=== PATIENT | male | born 1950 | race Caucasian/White ===

== ENCOUNTER 2021-08-14 15:41 | Emergency (ER) | payer MEDICARE, SELFPAY ==
--- NOTE | ~2021-08-14 | XR_ITS ---
EXAMINATION: XR lumbar spine min 4V EXAM DATE: 08/14/2021 17:27 INDICATION: Twisting injury, unable to lay flat due to back pain. TECHNIQUE: Lumber spine frontal, lateral, bilateral oblique projections. Coned down frontal and lat eral L5-S1 lumbar projections for interpretation. Comparison is made to prior examination from 09/18/18 . FINDINGS: There is moderate L2-3 disc disease, mild to moderate at the other lumbar levels. Minimal l umbar dextroscoliosis. No spondylolysis. The vertebral bodies are aligned in the AP dimension. There is moderate to severe mid and lower lumbar facet arthropathy. There is aortic arteriosclerosis. There are cholecystectomy clips. IMPRESSION: 1. Overall moderate lumbar spondylosis. 2. Mild dextro scoliosis. 3. No acute findings. Reviewed, dictated and finalized at location A. TOR TECHNICIAN
--- NOTE | ~2021-08-14 | XR_ITS ---
EXAMINATION: XR chest 2V EXAM DATE: 08/14/2021 17:27 INDICATION: Cough. TECHNIQUE: Frontal and lateral projections of the chest obtained and reviewed. Comparison is made to prior examination from 07/16/2016. FINDINGS: The lungs are clear. There are no pleural effusions. The cardiomediastinal silhouette is within normal limits. There is no pneumothorax suspected. The bones and soft tissues are unremarkab le. There are cholecystectomy clips. IMPRESSION: Normal chest x-ray exam. Reviewed, dictated and finalized at location A. OL PRINCIPAL IMPRESSION: Normal chest x-ray exam.
[2021-08-14 15:50] VITALS: BP 122/76; PULSE 70; RESP 18; TEMP 36.5; O2SAT 98
[2021-08-14] MEDS: KETOROLAC 30 MG/ML VIAL (*BKC) IM (17:41)
[2021-08-14 18:47] VITALS: BP 125/80; PULSE 72; RESP 18; O2SAT 100
--- NOTE | 2021-08-14 20:18 | ED.GENADULT ---
HPI - General Adult General Chief complaint: Back Pain/Injury Stated complaint: flank pain Time Seen by Provider: 08/14/21 16:57 Source: patient Mode of arrival: ambulatory Limitations: no limitations History of Present Illness HPI narrative: Patient is 71-year-old male presented with chief complaint of pain to the right side of his low back that began when reaching for an object on his [place] tree. He denies direct injury or impact or falls. Patient denies loss of bowel or bladder function or saddle paresthesia. Patient also reports that he has had a cough, fatigue and headache over the past few days. Patient reports that he was tested for Covid but is awaiting his results. Patient states he has not been tested for influenza. Patient denies any chest pain or shortness of breath. Patient denies any other emergent symptoms. Related Data Home Medications Medication Instructions Recorded Confirmed atorvastatin 40 mg tablet 40 mg PO DAILY 07/19/20 lisinopril 10 mg tablet 10 mg PO DAILY 07/19/20 Allergies Allergy/AdvReac Type Severity Reaction Status Date / Time No Known Allergies Allergy Verified 08/14/21 15:55 Review of Systems Review of Systems: CONSTITUTIONAL: Denies fever, chills, or sweats. EYES: Denies visual changes, redness, or discharge. ENT: Denies rhinorrhea, congestion, sore throat, or otalgia. CARDIOVASCULAR: Denies chest pain, palpitations, or edema. RESPIRATORY: Denies cough denies dyspnea. GASTROINTESTINAL: Denies abdominal pain, nausea, vomiting, or diarrhea. GENITOURINARY: Denies dysuria or hematuria. SKIN: Denies rash or itching. MUSCULOSKELETAL: Reports back pain, denies joint pain, or myalgia. NEUROLOGIC: Reports headache, denies numbness, dizziness, or weakness. PSYCHIATRIC: Denies anxiety or depression. [facility] Social History Social History (Updated 07/19/20 @ 08:13 by Kay Martinez [facility]) Smoking status: Former smoker Tobacco type: cigars Second hand tobacco smoke exposure: No Smoking end date: 08/11/99 Alcohol intake: current Substance use: never Substance use type: does not use Exam Narrative: GENERAL: Well-appearing, well-nourished, and in no acute distress. HEAD: Normocephalic, atraumatic. CHEST: Clear to auscultation. No respiratory distress. No wheezes rales or rhonchi HEART: Regular rate and rhythm. No murmur heard. Normal peripheral pulses. BACK: Spasming and tenderness to palpation of low back into the right paralumbar muscles. Pain with rotation and flexion. EXTREMITIES: Normal range of motion. Sensation intact. SKIN: Warm, dry, no rash. NEURO: No focal deficits. Alert and oriented x3. PSYCH: Normal mood and affect. Course Vital Signs Vital signs: Vital Signs Temperature 97.7 F 08/14/21 15:50 Pulse Rate 70 08/14/21 15:50 Respiratory Rate 18 08/14/21 15:50 Blood Pressure 122/76 08/14/21 15:50 Pulse Oximetry 98 08/14/21 15:50 Temperature 97.7 F 08/14/21 15:50 Pulse Rate 72 08/14/21 18:47 Respiratory Rate 18 08/14/21 18:47 Blood Pressure 125/80 08/14/21 18:47 Pulse Oximetry 100 08/14/21 18:47 Medical Decision Making [facility] Narrative Medical decision making narrative: patients pain is positional in nature and localized to back without signs of cord compression or cauda equina based on neurological exam, skeletal exam and history. No fever or other significant factors to suggest osteomyelitis or spinal epidural abscess. No symptoms or signs to suggest pain is referred from abdominal or / cardiopulmonary sources. No pulsatile masses noted on exam. Patient ambulates with steady gait and is stable for outpatient management given case findings. Patient influenza test negative. Patient vitals are stable. Patient not hypoxic or toxic. Discussed obtaining covid results, quarantine instructions and return ER instructions. Vital Signs Vital Signs: Vital Signs Temperature 97.7 F 08/14/21 15:50 Pulse Rate 70
== END 2021-08-14 18:48 | disposition home or self-care (01) ==
PROVIDERS: Emergency Provider Emergency Medicine; PCP Family Medicine
DX: S39.012A Strain of muscle, fascia and tendon of lower back, initial encounter (principal); Z20.822 Contact with and (suspected) exposure to COVID-19; Z87.891 Personal history of nicotine dependence; M47.816 Spondylosis without myelopathy or radiculopathy, lumbar region; M41.9 Scoliosis, unspecified; X50.9XXA Other and unspecified overexertion or strenuous movements or postures, initial encounter
CPT/HCPCS: 71046; 72110; 87804; 96372; 99284; J1885

== ENCOUNTER 2021-08-24 07:41 | Outpatient (CLI) | payer MEDICARE, SELFPAY ==
--- NOTE | ~2021-08-24 | CT_ITS ---
EXAMINATION: CT lumbar spine wo con EXAM DATE: 08/24/2021 08:00 INDICATION: Low back pain, spondylolisthesis. TECHNIQUE: Multi-sequential, multiplanar MR images of the lumbar spine were obtained without contrast . Sagittal T1, T2, T2 fat saturation images. Axial T2 weighted images. Correlation is made to lum r x-ray 08/14/2021. FINDINGS: Mild to moderate thoracolumbar disc disease. The vertebral bodies are aligned in the AP dim ension. Minimal lumbar dextroscoliosis. Sacroiliac joints have mild osteoarthritis. No evidence of sa cral insufficiency fracture. Mild aortic arterial sclerosis. Vertebral body heights are maintained. Level by level evaluation: T12-L1: There is a mild diffuse disc bulge. Facet arthropathy: Moderate to severe bilateral. Neural foraminal stenosis: Moderate left. Central canal stenosis: No stenosis. L1-L2: There is a minimal diffuse disc bulge. Facet arthropathy: Mild to moderate. Neural foraminal stenosis: No stenosis. Central canal stenosis: No stenosis. L2-L3: There is a mild diffuse disc bulge. Facet arthropathy: Moderate right, mild to moderate left. Neural foraminal stenosis: No stenosis. Central canal stenosis: Mild. L3-L4: There is a mild diffuse disc bulge. Facet arthropathy: Moderate bilateral. Neural foraminal stenosis: Mild to moderate left, mild right. Central canal stenosis: Mild. L4-L5: There is a mild diffuse disc bulge. Facet arthropathy: Moderate to severe. Neural foraminal stenosis: Moderate left, mild to moderate right. Central canal stenosis: Mild. L5-S1: There is a mild diffuse disc bulge. Facet arthropathy: Moderate. Neural foraminal stenosis: Mild right. Central canal stenosis: No stenosis. IMPRESSION: 1. No acute lumbar findings. 2. Up to moderate to severe facet arthropathy, mild to moderate disc disease. 3. Left T12-L1 and L4-5 neural foramen most narrowed on study. Reviewed, dictated and finalized at location A. FILL GAS TECHNICIAN
== END 2021-08-24 07:42 | disposition home or self-care (01) ==
PROVIDERS: PCP Family Medicine; Visit Provider Family Medicine
DX: M43.16 Spondylolisthesis, lumbar region (principal)
CPT/HCPCS: 72131

== ENCOUNTER 2021-10-22 11:00 | Outpatient (RCR) | payer MEDICARE, SELFPAY ==
--- NOTE | 2021-09-24 11:47 | PTOPEVAL ---
PHYSICAL THERAPY INITIAL EVALUATION. Thank you for referring Roberto Carlos Her to [facility].? The patient is scheduled to be seen for therapy? 2x/week for 4 weeks. Please review, sign, date and return this plan of care NICOLE. I agree with and certify that the following plan of care is medically necessary. Referring Physician Date Attending Provider: Dillon Arias MD *PT Outpatient Evaluation Start: 09/24/21 Evaluation Information Problem Diagnosis Spondylolisthesis of lumbar region Onset chronic, increase in last 8 weeks Subjective Information Pt states he has a long Query Text:As Reported By Patient/ history of low back pain. He Family had a very physical job and said back pain is not new for him. He has states since the beginning of August this pain has increased, it got so severe he had to go to the ED. It is now across the entire low back, deep L buttock and runs down into his L lateral thigh. He states sometimes the pain moves and has affected his R leg previously. His pain increases with sitting and when standing he is able to walk it off . Pt states prior to Covid he was very active and liked to exercise, he states he is still active now just not like he used to be. Additional Prior Level of Function Pt states he is very active Comments and is constantly working on his yard, house, and doing projects. Pain Assessment Lower Back Reported Pain Level 2 Pain Description Shooting,Spasms Pain Radiation Left Leg Pain Frequency Chronic,Continuous Lowest Pain Intensity 1 Greatest Pain Intensity 6 Pain Aggravating Factors Bending,Lifting,Sitting, Walking Lumbar ROM Reason Not Measured WFL/Left,WFL/Right Lumbar Flexion Active Mid Menendez Lumbar Extension (0-40) 10 Lateral Flexion R reached lateral knee joint Query Text:Active Hands to: line, L 1 in. above knee joint line Lateral Rotation Right (0-45) 35 Query Text:Active in Degrees Lateral Rotation Left (0-45) 45
--- NOTE | 2021-09-27 09:10 | PCPTNOTE ---
Patient called & cancelled scheduled appointment this date due to water entering his basement this morning.
--- NOTE | 2021-10-15 09:33 | PCPTNOTE ---
Patient called & cancelled scheduled appointment this date due to having water in his basement.
--- NOTE | 2021-10-22 13:49 | PTOPEVAL ---
PHYSICAL THERAPY DISCHARGE NOTE Thank you for referring Roberto Carlos Her to [facility].? The patient is to be discharged at this time. Please review, sign, date and return this plan of care NICOLE. I agree with and certify that the following plan of care is medically necessary. Referring Physician Date Attending Provider: Dillon Arias MD *PT Outpatient Evaluation Start: 09/24/21 Evaluation Information Diagnosis Spondylolisthesis of lumbar region Subjective Information Pt states overall he is doing Query Text:As Reported By Patient/ so much better. He still feels Family like his balance is a little off but improving. He and his are planning returning to [place] starting today. Pt states he feels really great after he comes to therapy, and will feel great for a couple of days but then the tightness increases after then. He states he is learning how to target his stiffness. Pain Assessment Lower Back Reported Pain Level 1 Cervical and Lumbar ROM Lumbar ROM Reason Not Measured WFL/Left,WFL/Right Lumbar Flexion Active Floor Lumbar Extension (0-40) 30 Lateral Flexion Reaching lateral knee joint Query Text:Active Hands to: like on both side, increase pulling sensation with R lateral flexion Lateral Rotation Right (0-45) 45 Lateral Rotation Left (0-45) 45 Normal Lumbar Segmental Motion Yes Lower Extremity Range of Motion General Lower Extremity Range of Motion WFL/Left,WFL/Right Lower Extremity Muscle Strength Testing Left Hip Flexion Strength 4+ Good + Hip Extension Strength 4 Good Hip Abduction Strength 4 Good Muscle Length Testing Alexis Test Shortened Muscles Short (L) Iliopsoas,Short (L) Rectus Femoris Piriformis w/Hip Flexion >90 Degrees (R) Mild Tightness,(L) Mild Tightness Left Hamstring Length -35 Right Hamstring Length -20 Muscle Length Testing Comments Increased muscle pull felt with prone hip extension Palpation Assessment Palpation Mild tenderness in L paraspinals Gait Assessment Gait Pattern Trendelenburg Gait,Wide Based Gait Other Gait Observations Increased lateral trunk lean bilaterally. PT Clinical Summary
== END 2021-10-23 10:50 | disposition home or self-care (01) ==
LOC: ANHPT 11:00
PROVIDERS: PCP Family Medicine; Visit Provider Family Medicine
DX: M43.16 Spondylolisthesis, lumbar region (principal); M54.50 Low back pain, unspecified
CPT/HCPCS: 97014; 97110; 97112; 97140; 97161; G0283

== ENCOUNTER 2023-04-07 02:32 | Day surgery (SDC) | payer MEDICARE, SELFPAY ==
[2023-03-26 10:34] VITALS: BMI 28.2
[2023-04-07 10:00] VITALS: BP 119/100; PULSE 83; RESP 18; TEMP 36.1; O2SAT 98
[2023-04-07] MEDS: LACTATED RINGERS 1,000 ML 150 ML IV CONT (10:09)
--- NOTE | 2023-04-07 10:36 | P.PNAN_ITS ---
Anes - Initial Pre Proc Eval Procedure: Operation Date: 04/07/23 11:30 Proposed Procedures p Esophagogastroduodenoscopy & Colonoscopy - Moe Griffin MD Date/Time: 04/07/23 10:36 Surgeon: Moe Griffin MD Pre Op Diagnosis: GERD,dysphagia, hx colon polyps Patient Data Age: 73 Gender: M Height: 1.7 m Weight: 77.4 kg Last Vital Signs Temp 97 F L 04/07/23 10:00 Pulse 83 04/07/23 10:00 Resp 18 04/07/23 10:00 BP 119/100 H 04/07/23 10:00 Pulse Ox 98 04/07/23 10:00 O2 Del Method Room Air 04/07/23 10:00 Allergies Allergy/AdvReac Type Severity Reaction Status Date / Time No Known Allergies Allergy Verified 04/07/23 09:59 Home Medications Medication Instructions Recorded Confirmed Type atorvastatin 40 mg tablet 40 mg PO DAILY 07/19/20 03/26/23 History lisinopril 10 mg tablet 10 mg PO DAILY 07/19/20 03/26/23 History tadalafil 20 mg tablet 20 mg PO DAILY PRN Sexual Activity 02/27/23 03/26/23 History testosterone 1 % (25 mg/2.5 gram) 1 packet transdermal DAILY 02/27/23 03/26/23 History transdermal gel packet famotidine 40 mg tablet 40 mg PO DAILY 03/26/23 03/26/23 History Patient hx anesthesia problems: none Family hx anesthesia problems: none Results Review: All pre-operative results and documents have been reviewed as part of the pre- operative evaluation. [facility] Past Medical History Medical History (Updated 02/27/23 @ 15:47 by Moe Griffin MD) Colon polyp Hx of acute arthritis Social History Social History Smoking status: Former smoker Tobacco type: cigars Second hand tobacco smoke exposure: No Smoking end date: 08/11/99 Alcohol intake: current Substance use: never Substance use type: does not use Living arrangements: with family Spiritual care concerns: No Anes - Eval Final PreProcedure Day of Procedure 04/07/23 10:36 Patient weight: normal Heart: regular rate and rhythm Lungs: clear to auscultation Airway: Mallampati scale class II Neurological: alert and oriented Last oral intake: >/= 8 hours ASA classification: II Emergent: no Anesthetic plan: proceed Anesthesia type and monitoring: general GIVS and standard monitoring Results Review: All pre-operative results and documents have been reviewed as part of the pre-operative evaluation. Informed Consent: The patient's anesthetic plan and its attendant risks and benefits were discussed with the patient/family/POA. Questions were solicited and answers provided to the satisfaction of the patient/family/POA.
--- NOTE | 2023-04-07 10:45 | PM.HPGS ---
History of Present Illness History of Present Illness Consent: Risks, benefits, and alternatives have been discussed and questions answered. Patient agrees to proceed with procedure. Chief complaint: GERD,dysphagia, hx colon polyps Narrative: Roberto Carlos Her is a 73 year old male here with more gerd lately, on famotidine, never had egd, last colonoscopy with polyp 8 years ago Review of Systems Constitutional: Constitutional: Denies headache(s) and Denies weakness Eyes: Eyes: Denies blurry vision ENT: Reports Normal hearing present, Denies headache(s) and Denies neck pain Cardiovascular: Cardiovascular: Denies chest pain and Denies dyspnea Respiratory: Respiratory: Denies dyspnea Gastrointestinal: Gastrointestinal: Reports no additional gastrointestinal complaints Genitourinary: Genitourinary: Denies dysuria Musculoskeletal: Musculoskeletal: Denies neck pain Integumentary/Breasts: Skin/Breast: Denies dry skin Neurologic: Reports Normal hearing present, Denies headache(s) and Denies weakness Psychiatric: Psychiatric: Denies anxiety Endocrine: Endocrine: Denies change in body appearance Hematologic/Lymphatic: Hematologic/Lymphatic: Denies easy bleeding Allergic/Immunologic: Allergic/Immunologic: Denies urticaria PMF Past Medical History Medical History (Updated 04/07/23 @ 10:46 by Moe Griffin MD) Colon polyp GERD (gastroesophageal reflux disease) Hx of acute arthritis Social History Social History Smoking status: Former smoker Tobacco type: cigars Second hand tobacco smoke exposure: No Smoking end date: 08/11/99 Alcohol intake: current Substance use: never Substance use type: does not use Living arrangements: with family Spiritual care concerns: No Meds Home Medications and Allergies Home Medications Medication Instructions Recorded Confirmed Type atorvastatin 40 mg tablet 40 mg PO DAILY 07/19/20 03/26/23 History lisinopril 10 mg tablet 10 mg PO DAILY 07/19/20 03/26/23 History tadalafil 20 mg tablet 20 mg PO DAILY PRN Sexual Activity 02/27/23 03/26/23 History testosterone 1 % (25 mg/2.5 gram) 1 packet transdermal DAILY 02/27/23 03/26/23 History transdermal gel packet famotidine 40 mg tablet 40 mg PO DAILY 03/26/23 03/26/23 History Allergies Allergy/AdvReac Type Severity Reaction Status Date / Time No Known Allergies Allergy Verified 04/07/23 09:59 Vital Signs Vital Signs - 24 hr 04/07/23 10:00 Temperature 97 F L Pulse Rate 83 Respiratory Rate 18 Blood Pressure 119/100 H Pulse Oximetry 98 Oxygen Delivery Room Air Exam Const: General: comfortable and no acute distress HENMT: Face/Nose/Sinus: Normal nares present Eyes: General: appearance normal, both eyes and all related structures Neck: Neck: no JVD Resp: Auscultation: clear to auscultation bilaterally Cardio: Rate: regular rate Rhythm: regular rhythm GI: Inspection: non-distended GI Palp: Yes Soft to palpation Skin: General skin exam: normal color Neuro: General: gait normal Speech: normal speech Extrem: General: normal to inspection Psych: Mental Status: mental status grossly normal Assessment and Plan Assessment and plan (1) Colon polyp: Code(s): K63.5 - Polyp of colon Status: Acute Assessment and Plan: colonoscopy (2) GERD (gastroesophageal reflux disease): Code(s): K21.9 - Gastro-esophageal reflux disease without esophagitis Status: Acute Assessment and Plan: egd with bx
--- NOTE | 2023-04-07 11:21 | SUR.OPER ---
EGD START 1057, END 1104 COLONOSCOPY START 1112, END 1119
[2023-04-07 11:25] VITALS: BP 98/66; PULSE 68; RESP 15; O2SAT 99
[2023-04-07 11:35] VITALS: BP 99/65; PULSE 66; RESP 15; O2SAT 99
[2023-04-07 11:45] VITALS: BP 127/69; PULSE 71; RESP 20; O2SAT 99
== END 2023-04-07 11:58 | disposition home or self-care (01) ==
PROVIDERS: PCP Family Medicine; Visit Provider Internal Medicine Gastroenterology
PROC: 0DJ08ZZ Inspection of Upper Intestinal Tract, Via Natural or Artificial Opening Endoscopic (ICD-10-PCS; CPT 43235; principal; 2023-04-07 11:30)
DX: Z12.11 Encounter for screening for malignant neoplasm of colon (principal); Z86.010 Personal history of colon polyps; K21.00 Gastro-esophageal reflux disease with esophagitis, without bleeding; R13.10 Dysphagia, unspecified; K44.9 Diaphragmatic hernia without obstruction or gangrene; K22.2 Esophageal obstruction; K29.70 Gastritis, unspecified, without bleeding; K57.30 Diverticulosis of large intestine without perforation or abscess without bleeding
CPT/HCPCS: 43239; 43249; G0105; 88305; C1726; J2704; J7120

== ENCOUNTER 2024-03-22 06:35 | Outpatient (CLI) | payer MEDICARE, SELFPAY ==
--- NOTE | ~2024-03-22 | CT_ITS ---
EXAMINATION: CT lumbar spine wo con DATE: 03/22/2024 07:14 INDICATION: Chronic low back pain. Left-sided sciatica. TECHNIQUE: Computed tomography (CT) of the lumbar spine was performed without intravenous contrast. A utomated exposure control and iterative reconstruction technique were employed. The dose-length produ ct was 356.97 mGy-cm. COMPARISON: Lumbar spine CT 08/24/2021 FINDINGS: There is a 2 mm stone in right kidney. There is 3 degrees dextrocurvature of lumbar spine. There is 2 mm anterolisthesis of T12 on L1. Vertebral body heights are normal. There is moderately de creased disc height at T12-L1, mildly decreased disc height at L2-L3, L3-L4, and L4-L5, and moderatel y decreased disc height at L5-S1. The following disc levels are specifically discussed: L1-L2: The disc does not extend beyond the endplate margin. There is severe bilateral facet joint ost eoarthritis. There is mild right neural foraminal stenosis. There is no central canal stenosis. L2-L3: The disc is bulging. There is severe bilateral facet joint osteoarthritis. There is mild bilat eral neural foraminal stenosis. There is mild central canal stenosis. L3-L4: The disc is bulging. There is severe bilateral facet joint osteoarthritis. There is mild right and moderate left neural foraminal stenosis. There is mild central canal stenosis. L4-L5: The disc is bulging. There is severe bilateral facet joint osteoarthritis. There is mild right and moderate left neural foraminal stenosis. There is mild central canal stenosis. L5-S1: The disc is bulging. There is severe bilateral facet joint osteoarthritis. There is mild bilat eral neural foraminal stenosis. There is mild central canal stenosis. IMPRESSION: 1. Moderate lumbar spondylosis, stable from 08/24/2021. Reviewed, dictated and finalized at location A.
== END 2024-03-22 06:36 | disposition home or self-care (01) ==
PROVIDERS: PCP Family Medicine; Visit Provider Registered Nurse
DX: M54.42 Lumbago with sciatica, left side (principal); G89.29 Other chronic pain; M47.896 Other spondylosis, lumbar region
CPT/HCPCS: 72131

== ENCOUNTER 2025-06-30 10:14 | Outpatient (CLI) | payer MEDICARE, SELFPAY ==
--- NOTE | ~2025-06-30 | XR_ITS ---
EXAMINATION: XR knee RT 3V, 06/30/2025 10:23 ASSISTANT CENTER DIRECTOR HISTORY: CHRONIC RIGHT KNEE PAIN COMPARISON: No comparisons available. Findings: No acute fracture or malalignment. Moderate to severe tricompartmental degenerative changes Soft tissues unremarkable. Impression: No acute fracture or malalignment. Reviewed, dictated and finalized at location P. STANT CENTER DIRECTOR Impression: No acute fracture or malalignment.
== END 2025-06-30 10:15 | disposition home or self-care (01) ==
PROVIDERS: PCP Family Medicine; Visit Provider Nurse Practitioner Family
DX: M25.561 Pain in right knee (principal)
CPT/HCPCS: 73562